=== PATIENT | female | born 1990 | race Caucasian/White ===

== ENCOUNTER → 2018-10-31 15:53 | Outpatient (CLI) | payer MEDICAID, SELFPAY ==
[2018-10-31 16:34] LABS: Basophils % 0.3 % (0.1-2.0); Eosinophils # 0.1 K/mm3 (0.0-0.4); Eosinophils % 1.4 % (0.1-12.0); Hematocrit 39.3 % (37.0-47.0); Hemoglobin 12.5 g/dL (12.2-16.2); Lymphocytes # 2.5 K/mm3 (0.7-4.5); Mean Corpuscular HGB Conc 31.7 g/dL (31.8-35.4); Mean Corpuscular Hemoglobin 28.2 pg (27.0-31.2); Mean Corpuscular Volume 88.7 fl (81-99); Mean Platelet Volume 7.2 fl (7.4-10.4); Monocytes # 0.3 K/mm3 (0.1-1.0); Monocytes % 4.4 % (1.7-9.3); Neutrophils # 4.3 K/mm3 (1.8-7.8); Neutrophils % 59.8 % (37.0-80.0); Platelet Count 254 K/mm3 (142-424); Red Blood Count 4.43 M/mm3 (4.20-5.40); Red Cell Distribution Width 13.8 % (11.5-17.5); White Blood Count 7.2 K/mm3 (4.8-10.8)
[2018-10-31 18:55] LABS: Thyroid Stimulating Hormone 1.11 uIU/ml (0.358-3.740)
[2018-11-03 17:08] LABS: HIV Screen 4th Generation wRfx Non Reactive (Non Reactive); Rapid Plasma Reagin Ab Titer Non Reactive (NonRea<1:1)
[2018-11-03 17:16] LABS: Hepatitis B Surface Antigen Negative (Negative); Rubella Antibodies, IgG 1.29 index (Immune >0.99)
== END ==
PROVIDERS: Visit Provider Obstetrics & Gynecology
DX: Z34.90 Encounter for supervision of normal pregnancy, unspecified, unspecified trimester (principal)
CPT/HCPCS: 36415; 84443; 85025; 86592; 86703; 86762; 86850; 87340; G0432

== ENCOUNTER → 2018-11-27 10:27 | Outpatient (CLI) | payer MEDICAID, SELFPAY ==
[2018-11-27 10:51] LABS: Basophils % 0.1 % (0.1-2.0); Hematocrit 37.3 % (37.0-47.0); Hemoglobin 12.3 g/dL (12.2-16.2); Lymphocytes # 1.9 K/mm3 (0.7-4.5); Lymphocytes % 19.6 % (10-50); Mean Corpuscular HGB Conc 33.1 g/dL (31.8-35.4); Mean Corpuscular Hemoglobin 29.6 pg (27.0-31.2); Mean Corpuscular Volume 89.6 fl (81-99); Monocytes # 0.4 K/mm3 (0.1-1.0); Monocytes % 3.9 % (1.7-9.3); Neutrophils # 7.3 K/mm3 (1.8-7.8); Neutrophils % 76.3 % (37.0-80.0); Platelet Count 249 K/mm3 (142-424); Red Blood Count 4.16 M/mm3 (4.20-5.40); Red Cell Distribution Width 13.9 % (11.5-17.5); White Blood Count 9.6 K/mm3 (4.8-10.8)
== END ==
PROVIDERS: Visit Provider Obstetrics & Gynecology
DX: Z48.89 Encounter for other specified surgical aftercare (principal); R50.9 Fever, unspecified
CPT/HCPCS: 36415; 85025; 87070; 87077; 87205

== ENCOUNTER → 2019-08-30 14:20 | Outpatient (CLI) | payer OTHER, SELFPAY ==
--- NOTE | 2019-08-30 14:21 | US_ITS ---
PROCEDURE: US OB /MATERNAL DETAIL CLINICAL INDICATION: COMPARISON: OBTV US OB transvaginal from 11/25/2018 FINDINGS: Single viable intrauterine gestation. Cephalic position. Placenta: Anteriorplacenta grade 1. There is average amount fluid. The cervix appears satisfactory. Closed and measuring 4 cm in length. Complete survey performed and was unremarkable on the submitted images as in PACS. No discrete anomalies identified on survey imaging by technologist. Active fetus. Three-vessel cord with satisfactory umbilical cord insertion. 4- chamber heart noted. Survey of brain & ventricles Unremarkable. Face and neck survey unremarkable. Diaphragm and chest views unremarkable. Abdomen: Both kidneys noted and unremarkable. Stomach noted and satisfactory. Spine: Survey of the spine satisfactory with no anomalies identified nor imaged. Both arms and legs noted. Amniotic Fluid: Adequate. Maternal adnexa: No significant findings. Measurements: Average ultrasound age 25 weeks 4 days. Gestational Age 26 weeks 0 days Estimated due date by ultrasound age 0212/09/2019. Estimated weight 769.6 ggrams. BPD = 26 weeks 4 days OFD = 25 weeks 3 days HC = 25 weeks 3 days AC = 25 weeks 0 days FL = 25 weeks 1 day Growth Percentile= 11 percent% Heart Rate = 126 bpm Cerebellum = 26 weeks 1 day Humerus = 26 weeks 0 days HC/AC is 1.14 CI is 0.81 FL/BPD is 0.69 FL/AC is 0.22 IMPRESSION: There is a single live fetus which is in cephalic presentation with an average ultrasound age of 25 weeks 4 days. All parameters correlate with no obvious anomalies. Please see above for detail Dictated by: Sherman Kovacs MD 08/30/2019 17:37 Electronically signed by Sherman Kovacs MD in [place] 08/30/2019 17:37
== END ==
PROVIDERS: PCP Internal Medicine Adolescent Medicine; Visit Provider Obstetrics & Gynecology
DX: Z34.90 Encounter for supervision of normal pregnancy, unspecified, unspecified trimester (principal)
CPT/HCPCS: 76811

== ENCOUNTER → 2019-09-20 16:44 | Outpatient (CLI) | payer OTHER, SELFPAY ==
[2019-09-20 17:23] LABS: Basophils % 0.2 % (0.1-2.0); Eosinophils # 0.2 K/mm3 (0.0-0.4); Eosinophils % 1.8 % (0.1-12.0); Hematocrit 38.3 % (37.0-47.0); Hemoglobin 12.6 g/dL (12.2-16.2); Lymphocytes # 2.5 K/mm3 (0.7-4.5); Lymphocytes % 22.1 % (10-50); Mean Corpuscular HGB Conc 33.1 g/dL (31.8-35.4); Mean Corpuscular Hemoglobin 30.3 pg (27.0-31.2); Mean Corpuscular Volume 91.7 fl (81-99); Mean Platelet Volume 8.4 fl (7.4-10.4); Monocytes # 0.5 K/mm3 (0.1-1.0); Monocytes % 4.1 % (1.7-9.3); Neutrophils % 71.8 % (37.0-80.0); Platelet Count 294 K/mm3 (142-424); Red Blood Count 4.17 M/mm3 (4.20-5.40); Red Cell Distribution Width 12.7 % (11.5-17.5); White Blood Count 11.2 K/mm3 (4.8-10.8)
[2019-09-20 18:57] LABS: Thyroid Stimulating Hormone 1.49 uIU/ml (0.358-3.740)
[2019-09-20 19:16] LABS: Amphetamine/Metha Screen,Urine Negative ng/mL (<1000); Barbiturates Screen,Urine Negative ng/mL (<200); Benzodiazepines Screen,Urine Negative ng/mL (<200); Cannabinoid Screen,Urine Negative ng/mL (<50); Cocaine Screen,Urine Negative ng/mL (<300); Methadone Screen,Urine Negative ng/mL (<300); Opiate Screen,Urine Negative ng/mL (<300); Phencyclidine Screen,Urine Negative ng/mL (<25)
[2019-09-22 08:27] LABS: HIV Screen 4th Generation wRfx Non Reactive (Non Reactive); Rapid Plasma Reagin Ab Titer Non Reactive (NonRea<1:1)
[2019-09-22 17:53] LABS: Hepatitis B Surface Antigen Negative (Negative); Hepatitis C Antibody >11.0 s/co ratio (0.0-0.9)
== END ==
PROVIDERS: Visit Provider Obstetrics & Gynecology
DX: Z34.90 Encounter for supervision of normal pregnancy, unspecified, unspecified trimester (principal)
CPT/HCPCS: 36415; 80305; 84443; 85025; 86592; 86703; 86762; 86850; 87340; 87380; G0432

== ENCOUNTER → 2019-10-15 17:14 | Outpatient (CLI) | payer OTHER, SELFPAY | PROVIDERS: Visit Provider Obstetrics & Gynecology | DX: Z34.90 Encounter for supervision of normal pregnancy, unspecified, unspecified trimester (principal) | CPT/HCPCS: 36415; J2790 ==

== ENCOUNTER 2019-10-19 11:50 | Outpatient (CLI) | payer OTHER, SELFPAY ==
[2019-10-19 12:05] VITALS: BP 117/61; PULSE 89; RESP 18; O2SAT 97
== END 2019-10-19 12:05 | disposition home or self-care (01) ==
LOC: INF 12:00
PROVIDERS: PCP Internal Medicine Adolescent Medicine; Visit Provider Obstetrics & Gynecology
DX: O26.893 Other specified pregnancy related conditions, third trimester (principal)
CPT/HCPCS: 96372; J2790

== ENCOUNTER → 2019-10-26 13:56 | Outpatient (CLI) | payer OTHER, SELFPAY ==
--- NOTE | 2019-10-26 13:57 | US_ITS ---
PROCEDURE: US OB FOLLOW UP CLINICAL INDICATION: US OB Growth SANDER- SGA Small for gestational age COMPARISON: US OB /MATERNAL DETAIL from 08/30/2019 FINDINGS: There is a single live fetus present which is in cephalic presentation. Average ultrasound age is 33 weeks 0 days with estimated weight 2067 g which is 15th percentile. Following parameters obtained. BPD 32 weeks 3 days, OFD 35 weeks 2 days, HC 33 weeks 4 days, AC 33 weeks 1 day, FL 32 weeks 4 days. Amniotic fluid volume is 12 cm which is within normal limits. The placenta is anterior and grade 1 IMPRESSION: There is a single live fetus present which is in cephalic presentation. Average ultrasound age is 33 weeks 0 days with estimated weight 2067 g which is 15th percentile SANDER is normal at 12 cm Dictated by: Sherman Kovacs MD 10/27/2019 09:30 Electronically signed by Sherman Kovacs MD in [place] 10/27/2019 09:30
== END ==
PROVIDERS: PCP Internal Medicine Adolescent Medicine; Visit Provider Obstetrics & Gynecology
DX: O36.5990 Maternal care for other known or suspected poor fetal growth, unspecified trimester, not applicable or unspecified (principal)
CPT/HCPCS: 76816

== ENCOUNTER → 2019-11-09 12:52 | Outpatient (CLI) | payer OTHER, SELFPAY ==
--- NOTE | 2019-11-09 12:57 | US_ITS ---
PROCEDURE: US OB FOLLOW UP CLINICAL INDICATION: US OB Growth and SANDER- IUGR COMPARISON: US OB FOLLOW UP from 10/26/2019 FINDINGS: Single viable intrauterine gestation. Cephalic position. Placenta: placenta grade anterior 2-3. SANDER is 12.1 The cervix appears satisfactory. Closed and measuring 2.7 centimeters in length. Complete survey performed and was unremarkable on the submitted images as in PACS. No discrete anomalies identified on survey imaging by technologist. Active fetus. Three-vessel cord with satisfactory umbilical cord insertion. 4- chamber heart noted. Survey of brain & ventricles Unremarkable. Face and neck survey unremarkable. On image [id number] a nonspecific 1 centimeter cystic focus is seen in the periorbital region. Diaphragm and chest views unremarkable. Abdomen: Both kidneys noted and unremarkable. Stomach noted and satisfactory. Spine: Survey of the spine satisfactory with no anomalies identified nor imaged. Both arms and legs noted. Amniotic Fluid: Adequate. Maternal adnexa: No significant findings. Measurements: Average ultrasound age 33weeks 6days. Gestational Age 33weeks 6days Estimated due date by ultrasound age 0312/22/2019. Estimated weight 2,255g BPD = 34weeks 1day OFD = 34 weeks 4 days HC = 34weeks AC = 34weeks 1day FL = 33weeks Growth Percentile= 12Percent% Heart Rate = 123bpm HC/AC is 1.02 CI is 0.78 FL/BPD is 0.75 FL/AC is 0.21 IMPRESSION: Living intrauterine gestation at 33 weeks 6 days. Dictated by: Zeke Chapman 11/09/2019 14:44 Electronically signed by Zeke Chapman in [place] 11/09/2019 14:44
== END ==
PROVIDERS: PCP Internal Medicine Adolescent Medicine; Visit Provider Obstetrics & Gynecology
DX: O36.5990 Maternal care for other known or suspected poor fetal growth, unspecified trimester, not applicable or unspecified (principal)
CPT/HCPCS: 76816

== ENCOUNTER → 2019-11-13 16:43 | Outpatient (CLI) | payer OTHER, SELFPAY | PROVIDERS: Visit Provider Obstetrics & Gynecology | DX: Z34.90 Encounter for supervision of normal pregnancy, unspecified, unspecified trimester (principal) | CPT/HCPCS: 86403 ==

== ENCOUNTER 2019-11-26 07:30 | Inpatient (IN) ==
[2019-11-30 08:35] LABS: Basophils % 0.3 % (0.1-2.0); Eosinophils # 0.6 K/mm3 (0.0-0.4); Eosinophils % 6.1 % (0.1-12.0); Hematocrit 36.3 % (37.0-47.0); Lymphocytes % 30.7 % (10-50); Mean Corpuscular Volume 90.3 fl (81-99); Mean Platelet Volume 8.4 fl (7.4-10.4); Monocytes # 0.5 K/mm3 (0.1-1.0); Monocytes % 4.8 % (1.7-9.3); Neutrophils # 5.7 K/mm3 (1.8-7.8); Neutrophils % 58.1 % (37.0-80.0); Platelet Count 261 K/mm3 (142-424); Red Blood Count 4.02 M/mm3 (4.20-5.40); Red Cell Distribution Width 13.5 % (11.5-17.5); White Blood Count 9.8 K/mm3 (4.8-10.8)
[2019-11-30 08:53] LABS: Microscopic, Urine URINE MICROSCOPIC (MICROSCOPIC)
[2019-11-30 09:07] LABS: Appearance,Urine CLOUDY (Clear); Bilirubin,Urine Negative (Negative); Blood, Urine Negative (Negative); Color,Urine YELLOW (Yellow); Glucose,Urine (UA) Negative (Negative); Ketones,Urine Negative (Negative); Leukocyte Esterase,Urine TRACE (Negative); Protein,Urine Negative (Negative)
[2019-11-30 09:57] LABS: Bacteria,Urine 4+ /lpf
[2019-11-30 09:59] LABS: Amphetamine/Metha Screen,Urine Negative ng/mL (<1000); Barbiturates Screen,Urine Negative ng/mL (<200); Benzodiazepines Screen,Urine Negative ng/mL (<200); Cannabinoid Screen,Urine Negative ng/mL (<50); Cocaine Screen,Urine Negative ng/mL (<300); Methadone Screen,Urine Negative ng/mL (<300); Opiate Screen,Urine Negative ng/mL (<300); Phencyclidine Screen,Urine Negative ng/mL (<25)
--- NOTE | 2019-11-30 11:16 | Operative Note ---
Pre-Op/Post-Op Diagnoses Operation Date: 11/30/19 09:45 <No data on this case meets the specified criteria> 1. 38 5/7 wks 2. IUGR 3. Previous C Section 4. Hepatitis C positive 5. Tobacco abuse Procedure: Procedures Operation Date: 11/30/19 09:45 <No data on this case meets the specified criteria> Repeat Low Transverse C Section Disposition: floor Anesthesia type: Spinal Complications: none Narrative: The patient was taken to the OR and spinal was administered without difficulty. She was prepped and draped in normal sterile fashion. A pfannenstiel skin incision was made with the scalpel and carried down to the fascia. The fascia was incised in the midline and sharply dissected off the rectus muscles. The muscles were in the midline and the peritoneum was entered sharply and extended bluntly. The Dave-O self retaining retractor was placed in the abdomen and a bladder flap was created. The uterus was incised in the lower uterine segment in a transverse fashion and extended bluntly. Amniotomy was performed and clear fluid noted. The infant was delivered in controlled fashion, without complication or shoulder dystocia. The infant was vigorous at and handed to awaiting table games manager for evaluation after cord clamped and cut. Cord blood was collected and a cord segment was preserved. The placenta was manually extracted and noted to be intact. The uterus was repaired with 0- vicryl in a running/locked fashion. The peritoneum was closed with 2-0 vicryl in a running fashion. The fascia was closed with #1 vicryl in a running fashion. The subcutaneous fat was closed with 2-0 vicryl in an interrupted fashion. The skin was closed with leonor. The patient tolerated the procedure well. Sponge, lap, needle and instrument counts were correct x 2. EBL: 600cc She was taken to PACU awake and in stable condition. Additional notation: The patient had previously signed consent for tubal sterilization to be done at the time of her c section, but disclosed to the physician and OR staff on the day of her procedure that she did not want to have the sterilization procedure performed.
--- NOTE | 2019-11-30 11:24 | Pharmacy Consult Notes ---
[facility] Pharmacy VTE Monitoring - Patient Demographics Admission date: 11/30/19 Report Date: 11/30/19 Time: 11:24 Allergies/Adverse Reactions: Patient Allergies Penicillins Allergy (Mild, Verified 11/26/19 15:16) hydrocodone [From LORTAB] Allergy (Unknown, Verified 11/26/19 15:16) latex [LATEX] Allergy (Unknown, Verified 11/26/19 15:16) Height: 1.55 m Weight: 62.142 kg Patient Problems: Current Active Problems Tobacco smoking complicating (Acute) IUGR (intrauterine growth restriction) (Acute) Previous section (Acute) with plans to adopt out baby (Acute) Hepatitis C (Acute) Rh negative status during in first trimester (Acute) - VTE Risk Labs: VTE Related Lab Results Hgb 12.0 g/dL (12.2-16.2) L 11/30/19 08:20 Hct 36.3 % (37.0-47.0) L 11/30/19 08:20 Plt Count 261 K/mm3 (142-424) 11/30/19 08:20 Clinical Trial Participant: No - Prophylaxis VTE Prophylaxis Ordered?: Yes Types of VTE Prophylaxis: IPCS Thigh High
--- NOTE | 2019-11-30 11:26 | Progress Note ---
[facility] Anesthesia Checklist - Patient Identification Patient Identification: Arm Band, Verbal (Name & ) - Structural Data Admitted From: Home Planned Operative Procedure/s: Repeat Consent for Planned Operative Procedure(s) Verified: Yes Verified Documents: Surgical Consent, History and Physical - NPO Status Verified Time NPO: 00:00 - Chart Verification Results Verified: CBC - Additional verifications Patient : Yes Anesthesia Reactions: No Hx Blood Transfusions: No Blood Transfusion Reaction: No - Airway Assessment C-Spine Mobility Assessed: Yes TMJ Mobility Assessed: Yes Dentition: Poor Dentition - Neurological Assessment Level of Consciousness: Awake (anxious), Alert, Follows Commands Hx Seizures: No Numbness or tingling in extremities: No - Anesthesia Plan Anesthesia Risk discussed: Yes Anesthesia Plan: Verified ASA Class: III Anesthesia Type: Spinal [facility] History I have reviewed the patient's past medical history: Yes Medical History: Reports:: Hepatitis (Hep C) Denies:: Cancer, Diabetes Mellitus Type 1, Diabetes Mellitus Type 2, Internal Pacemaker, Lung Disease, MRSA, Seizures *Have you ever received a pneumonia vaccine?: No *Have you received a flu vaccine this season?: Yes Other Medical History: Reports: Other. Denies: Blood Transfusion Reaction Anesthesia experience/problems:: none Other Surgeries: Yes: . No: Pacemaker Amputation: No Fractures: No - *Social History Smoking Status: Current every day smoker Tobacco Type: cigarettes # Packs/Day (cigarettes): 1 Alcohol Intake: never Alcohol Intake Frequency:: other Substance Use Type: heroin (hx of heroin abuse) *Occupational Status:: unemployed Housing: house Household Members: family *Travel in the last 8 weeks: None Family Hx:: Cancer Para: 2
--- NOTE | 2019-11-30 11:27 | Progress Note ---
[facility] Anesthesia Record Part I Intake, IV Amount: 700 Estimated blood loss (mL): 600 Urine output (mL): 400 Blood Products used (#): none Blood Pressure: 122/70 SaO2: 96 Pulse Rate: 62 Respiratory Rate: 15 Temperature: 97.0 F Patient is:: Awake, Stable Stable to PACU at:: 11:17
--- NOTE | 2019-11-30 16:33 | Progress Note ---
[facility] Anesthesia Record Part II Discharge Time: 12:17 Destination: Obstetric PACU nurse assessment reviewed?: Yes Patient Condition:: Good Anesthesia Complications:: None Swallowing reflex intact?: Yes Cyanosis?: No Blood Pressure: 115/67 Pulse Rate: 55 Temperature: 97.5 F Mental Status: Alert & Oriented Pain level:: 5 Nausea and/or vomitting:: None Intake, IV Amount: 0
[2019-12-01 05:52] LABS: Hematocrit 26.2 % (37.0-47.0); Hemoglobin 8.9 g/dL (12.2-16.2)
--- NOTE | 2019-12-01 11:03 | Progress Note ---
Internal Medicine - PN: Subj *Date: 12/01/19 *Time: 11:02 Interval history: She continues to do well this morning. She is eating and drinking and ambulating. She is bottlefeeding. Her lochia is normal. Her incision is clean and dry. Exam Vital signs and Labs for Last 24 Hours: Temp Pulse Resp BP Pulse Ox 97.7 F 72 20 103/51 L 99 12/01/19 08:30 12/01/19 08:30 12/01/19 08:30 12/01/19 08:30 12/01/19 08:30 Laboratory Results - last 24 hr 11/30/19 07:50: Urine Color Yellow, Urine Appearance Cloudy, Urine pH 7.0, Ur Specific [place] 1.020, Urine Protein Negative, Urine Glucose (UA) Negative, Urine Ketones Negative, Urine Blood Negative, Urine Nitrate Positive, Urine Bilirubin Negative, Urine Urobilinogen 1.0, Ur Leukocyte Esterase Trace, Urine RBC None, Urine WBC 5-10, Ur Squamous Epith Cells 10-20, Urine Bacteria 4+ 11/30/19 08:20: Blood Type A Negative 11/30/19 08:20: Antibody Identification Anti-D 11/30/19 10:28: Urine Color Yellow, Urine Appearance Clear, Urine pH 7.0, Ur Specific [place] <= 1.005, Urine Protein Negative, Urine Glucose (UA) Negative, Urine Ketones Negative, Urine Blood Negative, Urine Nitrate Positive, Urine Bilirubin Negative, Urine Urobilinogen 1.0, Ur Leukocyte Esterase Trace, Urine RBC None, Urine WBC Occasional, Ur Squamous Epith Cells Occasional, Urine Bacteria 2+ A 12/01/19 05:35: Hgb 8.9 L D, Hct 26.2 L I & O for Last 24 hours: Intake & Output 11/28/19 11/29/19 11/30/19 12/01/19 11:59 11:59 11:59 11:59 Intake Total 700 / 700 0 / 0 Balance 700 / 700 0 / 0 Weight 137 lb Microbiology Reports for the Last 24 Hours: Microbiology 11/30/19 10:28 Urine,Catheterized Urine Culture - Preliminary Gram Negative Rods 11/30/19 07:50 Urine,Clean Catch Urine Culture - Preliminary Gram Negative Rods - Constitutional no acute distress Assessment and Plan (1) IUGR (intrauterine growth restriction) Current visit: Yes Status: Acute Category: Medical (2) complicated by subutex maintenance, antepartum Current visit: Yes Status: Acute Category: Medical Code(s): O99.320 - Drug use complicating , unspecified trimester; F11.20 - Opioid dependence, uncomplicated (3) Previous section Current visit: Yes Status: Acute Category: Surgical Code(s): Z98.891 - History of uterine scar from previous surgery (4) Rh negative status during in first trimester Current visit: Yes Status: Acute Category: Medical Code(s): O26.891 - Other specified related conditions, first trimester; Z67.91 - Unspecified blood type, Rh negative (5) Tobacco smoking complicating Current visit: Yes Status: Acute Category: Medical Code(s): O99.330 - Smoking (tobacco) complicating , unspecified trimester - Assessment and plan all Dx Assessment and Plan for all problems:: She is doing well this morning. She will be discharged home in 48 hours.
--- NOTE | 2019-12-02 11:11 | Progress Note ---
Internal Medicine - PN: Subj *Date: 12/02/19 *Time: 11:10 Interval history: She continues to do well this morning. She is eating and drinking and ambulating. Her pain is well controlled. Exam Vital signs and Labs for Last 24 Hours: Temp Pulse Resp BP Pulse Ox 98.1 F 73 20 117/56 L 99 12/02/19 09:10 12/02/19 09:10 12/02/19 09:10 12/02/19 09:10 12/02/19 09:10 I & O for Last 24 hours: Intake & Output 11/29/19 11/30/19 12/01/19 12/02/19 11:59 11:59 11:59 11:59 Intake Total 700 / 700 0 / 0 Balance 700 / 700 0 / 0 Weight 137 lb Microbiology Reports for the Last 24 Hours: Microbiology 11/30/19 10:28 Urine,Catheterized Urine Culture - Final Escherichia coli 11/30/19 07:50 Urine,Clean Catch Urine Culture - Final Escherichia coli - Constitutional no acute distress Assessment and Plan (1) IUGR (intrauterine growth restriction) Current visit: Yes Status: Acute Category: Medical (2) complicated by subutex maintenance, antepartum Current visit: Yes Status: Acute Category: Medical Code(s): O99.320 - Drug use complicating , unspecified trimester; F11.20 - Opioid dependence, uncomplicated (3) Previous section Current visit: Yes Status: Acute Category: Surgical Code(s): Z98.891 - History of uterine scar from previous surgery (4) Rh negative status during in first trimester Current visit: Yes Status: Acute Category: Medical Code(s): O26.891 - Other specified related conditions, first trimester; Z67.91 - Unspecified blood type, Rh negative (5) Tobacco smoking complicating Current visit: Yes Status: Acute Category: Medical Code(s): O99.330 - S moking (tobacco) complicating , unspecified trimester - Assessment and plan all Dx Assessment and Plan for all problems:: She is doing very well. She will likely be discharged tomorrow. Dr. Leyva will see her in the morning.
[2019-12-02 13:38] LABS: Microscopic, Urine URINE MICROSCOPIC (MICROSCOPIC)
[2019-12-02 17:09] VITALS: BP 117/62
--- NOTE | 2019-12-02 17:53 | Discharge Summary ---
General - General Admission date:: 11/30/19 Discharge date: 12/02/19 HPI HPI: She is a 29-year-old 5 para 3 aborta 2 who was 39 weeks gestational age. She is had 2 previous sections and as result of this was offered repeat lower segment transverse section at term. Hospital Course Hospital Course: On November 30, 2019 she underwent a repeat lower segment transverse section and delivered a liveborn female child at 10:43 AM. The baby weighed 6 pounds 3 ounces and was 18-1/2 inches long. She had Apgars of 8 at 1 minute and 8 at 5 minutes. She has done well and has remained afebrile throughout her hospitalization. She is eating and drinking and ambulating. We are sending her home a day early since her baby is going through withdrawal. The manolo paz has been on Subutex. Baby is being transferred to . She has A Rh- blood and her baby was Rh- so she did not receive RhoGam. She is rubella immune and was group A streptococcus negative. She is bottlefeeding. Her rough rib grader is Dr. Torres. She is discharged home to follow-up with Dr. Major in a few days time to have her leonor removed. She will continue with her vitamins and iron. She will be given a prescription for Percocet 5/325 number 20 tablets. She will take ibuprofen as well. She was given the usual instructions with respect to limiting her activity, driving and sexual activity. Her condition on discharge is stable and improved. Rhogam Administration: Not Indicated Objective Vital signs: Temp Pulse Resp BP Pulse Ox 98.3 F 90 20 117/62 98 12/02/19 16:00 12/02/19 16:00 12/02/19 16:00 12/02/19 16:00 12/02/19 16:00 no acute distress Results Labs on day of discharge: Labs from last 24 hours 12/02/19 13:35 Urine Color Urine Appearance Urine pH Ur Specific [place] Urine Protein Urine Glucose (UA) Urine Ketones Urine Blood Urine Nitrate Urine Bilirubin Urine Urobilinogen Ur Leukocyte Esterase DS: Diagnosis - Discharge Diagnosis (1) IUGR (intrauterine growth restriction) Status: Acute (2) complicated by subutex maintenance, antepartum Status: Acute (3) Previous section Status: Acute (4) Rh negative status during in first trimester Status: Acute (5) Tobacco smoking complicating Status: Acute Discharge Plan - Patient Discharge Instructions ACTIVITY: No heavy lifting DIET: continue same diet Additional Instructions: CALL DR. MAJOR TO SCHEDULE F/U APPOINTMENT. Patient Instructions: DI for Hemorrhage, Depression, DI for Depression, [facility] Post Discharge Instructions - Follow up Plan Disposition: Home, Self-Alf Medications: Home Medications Medication Instructions Recorded Confirmed Type buprenorphine HCl 8 mg sublingual 16 mg SUBLINGUAL DAILY 10/19/19 12/01/19 History tablet Docosahexanoic Acid [ DHA] 200 mg PO DAILY 11/30/19 11/30/19 History Oxycodone HCl/Acetaminophen 1 tab PO Q4H PRN #20 tab 12/02/19 Rx [Percocet 5/325mg tablet] Prescriptions/Medication Reconciliation: New Oxycodone HCl/Acetaminophen [Percocet 5/325mg tablet] 1 tab PO Q4H PRN #20 tab PRN Reason: Severe Pain Continued buprenorphine HCl 8 mg sublingual tablet 16 mg SUBLINGUAL DAILY Docosahexanoic Acid [ DHA] 200 mg PO DAILY - Problem Reconciliation Problems Reviewed?: Yes
[2019-12-02 18:53] LABS: Color,Urine Yellow (Yellow)
[2019-12-02 18:55] LABS: Appearance,Urine Cloudy (Clear)
[2019-12-02 18:56] LABS: Glucose,Urine (UA) Negative (Negative); Ketones,Urine Negative (Negative); Protein,Urine Negative (Negative); Specific Gravity, Urine >= 1.030 (1.005-1.030)
[2019-12-02 18:57] LABS: Bilirubin,Urine Negative (Negative); Blood, Urine 2+ (Negative); Leukocyte Esterase,Urine Negative (Negative)
[2019-12-02 18:59] LABS: Squamous Epithelial Cell,Urine 20-50 #/hpf (0-5)
[2019-12-02 19:00] LABS: Amorphous Sediment,Urine 4+ /lpf; Calcium Oxalate Crystals,Urine 1+ /lpf
== END 2019-12-02 18:28 | disposition home or self-care (01) | DRG 787 ==
LOC: OB 11-30 07:42
PROVIDERS: ADMIT Obstetrics & Gynecology; ATTEND Obstetrics & Gynecology
CPT/HCPCS: 36415; 59025; 80305; 80348; 81001; 85014; 85018; 85025; 86850; 86870; 87086; 87088; 87186; J0571; J2405; S0077

== ENCOUNTER → 2019-12-17 11:55 | Outpatient (CLI) | payer OTHER, SELFPAY | PROVIDERS: Visit Provider Obstetrics & Gynecology | DX: N39.0 Urinary tract infection, site not specified (principal) | CPT/HCPCS: 36415; 87086; 87088; 87186 ==

== ENCOUNTER 2021-01-04 18:56 | Emergency (ER) | payer OTHER, SELFPAY ==
[2021-01-04 18:57] VITALS: BP 131/80; PULSE 102; RESP 20; TEMP 37.1; O2SAT 100; BMI 25.9
--- NOTE | 2021-01-04 19:39 | HMH.EDUTC ---
[facility] [place] Clinical Impression: Strep throat Disposition: Home, Self-Care Condition on Discharge: Good Instructions: DI for Strep Throat, Strep Throat, Strep Throat (Alternative Therapy) Additional Instructions: *Monitor Temp, Over the counter Motrin or Tylenol as directed/as needed Tylenol every 4 hours and Motrin every 6 hours (as long as your family doctor has told you that you can take it) for fever or pain. and straight to ER if unable to lower temp less than 101.0 after medication given *Warm salt water gargles may help to soothe the throat *Throat Lozenges *Warm fluids like tea with honey may help to soothe the throat *Sleep elevated *Humidifier/Vaporizer *If you did not take Penicillin shot or was unable to, start taking antibiotic immediately and make sure that you take it for the FULL length of time although you should start to feel better in 24-48 hours *change toothbrush and toothpaste 24-48 hours after starting to take antibiotics so you do not reinfect yourself Monitor Temp. Tylenol and/or Ibuprofen as needed. ER if fever is no less than 101 despite alternating Tylenol and Ibuprofen * Encourage fluids, water, Gatorade, powerade, pedialyte if infant/toddler/or child *Cold fluids, popsicles and ice cream may feel good on his throat Follow up IMMEDIATELY for new or worsening symptoms or no Noticeable improvement over the next 48-72 hours. 911 for difficulty breathing or swallowing Prescriptions: Azithromycin [Z-Jose Angel 250mg Tab] 250 mg PO DIRECTED #6 tab Transmission Status: Pending to [facility]/pharmacy #[id number] Referrals: Dexter Garduno MD [Primary Care Provider] - As needed Time of Disposition: 19:43 Medical Decision Making - Calin Inquiry Pt receiving controlled substance: No Calin was queried for this patient: No Vital Signs: 01/04/21 18:57 Temperature 98.8 F Temperature Source Oral Pulse Rate [Right Brachial] 102 H Respiratory Rate 20 Blood Pressure [Right Arm] 131/80 Blood Pressure Mean [Right Arm] 97 Blood Pressure Source [Right Arm] Automatic Cuff Blood Pressure Position [Right Arm] Sitting 02 Sat by Pulse Oximetry 100 Oxygen Delivery Method Room Air - Lab Data Lab results reviewed: Yes: I reviewed the patient's lab results. [facility] [place]PI - General Stated complaint: possible strep Time Seen by Provider: 01/04/21 19:39 Mode of Arrival: Ambulatory Source of Information: Patient Limitations: No Limitations Description of Symptoms (Recalled from Triage Doc. by RN): C/O SORE THROAT, EXPOSURE TO STREP HEENT Symptoms (Recalled from RN notes): Yes Resp Symptoms (Recalled from RN notes): No Skin Symptoms (Recalled from RN notes): No MS Symptoms (Recalled from RN notes): No Functional Status (Recalled from RN notes): WNL - History of Present Illness Provider Complaint: Patient states that her throat has been sore for several days and her daughter tested positive for strep throat earlier today and she thinks she may have it too - Related Data Home Medications Medication Instructions Recorded Confirmed buprenorphine HCl 8 mg sublingual 16 mg SUBLINGUAL DAILY 10/19/19 12/17/19 tablet Previous Rx's Medication Instructions Recorded ciprofloxacin HCl 500 mg tablet 500 mg PO BID 5 Days #10 tab 12/17/19 norethindrone acetate 1.5 1 tab PO DAILY #21 tab 02/12/20 mg-ethinyl estradiol 30 mcg tablet Azithromycin [Z-Jose Angel 250mg Tab] 250 mg PO DIRECTED #6 tab 01/04/21 Allergies Allergy/AdvReac Type Severity Reaction Status Date / Time Penicillins Allergy Mild Verified 12/17/19 10:48 hydrocodone [From LORTAB] Allergy Unknown Verified 12/17/19 10:48 latex [LATEX] Allergy Unknown Verified 12/17/19 10:48 - Worker's Comp Is this a Worker's Comp case?: No [facility] History - Hepatitis A Screen Drug use history?: No High risk sexual behaviors?: No History of sexually transmitted infection?: No Currently employed?: No Childcare worker?: No Do you have indoor plumbing
[2021-01-04 19:55] VITALS: BP 131/80; PULSE 102; RESP 20; TEMP 37.1; O2SAT 100
[2021-01-04 21:42] LABS: UTC Strep Screen (Rapid) Positive (Negative)
== END 2021-01-04 20:00 | disposition home or self-care (01) ==
PROVIDERS: Emergency Provider Nurse Practitioner; PCP Internal Medicine Adolescent Medicine
DX: J02.0 Streptococcal pharyngitis (principal); B19.20 Unspecified viral hepatitis C without hepatic coma; F17.210 Nicotine dependence, cigarettes, uncomplicated; Z88.0 Allergy status to penicillin; Z88.5 Allergy status to narcotic agent; Z91.040 Latex allergy status; Z79.899 Other long term (current) drug therapy
CPT/HCPCS: 87880; 99202; G0463

== ENCOUNTER → 2021-07-10 17:28 | Outpatient (CLI) | payer OTHER, SELFPAY | PROVIDERS: PCP Internal Medicine Adolescent Medicine; Visit Provider Nurse Practitioner | DX: Z20.822 Contact with and (suspected) exposure to COVID-19 (principal) | CPT/HCPCS: C9803; U0003; U0005 ==

== ENCOUNTER 2021-11-24 21:15 | Emergency (ER) | payer OTHER, SELFPAY ==
[2021-11-24 21:17] VITALS: BP 134/94; PULSE 63; RESP 18; TEMP 36.8; O2SAT 98; BMI 28.3
--- NOTE | 2021-11-24 21:42 | HMH.EDWNDL ---
ED Disposition Clinical Impression: Laceration of hand Qualifiers: Encounter type: initial encounter Foreign body presence: without foreign body Laterality: right Qualified Code(s): S61.411A - Laceration without foreign body of right hand, initial encounter Disposition: Home, Self-Care Condition on Discharge: Good Instructions: DI for Laceration Repair Additional Instructions: recheck if any problems Referrals: Dexter Garduno MD [Primary Care Provider] - - Critical Care Critical Care Time: No Attestation: On 11/24/21, the high probability of a clinically significant, sudden or life threatening deterioration of the following system(s) required my full and direct attention, intervention and personal management. The time I documented below is in addition to time spent performing reported procedures but includes the following listed in this critical care notation. Medical Decision Making - Medical Records Medical records reviewed: Yes: I reviewed the patient's medical records. - Calin Inquiry Pt receiving controlled substance: No Vital Signs: 11/24/21 21:17 Temperature 98.3 F Temperature Source Oral Pulse Rate [Right] 63 Respiratory Rate 18 Blood Pressure [Right Arm] 134/94 H Blood Pressure Mean [Right Arm] 107 02 Sat by Pulse Oximetry 98 Oxygen Delivery Method Room Air Medical Decision Narrative: declined sutures and will recheck if needed Wound/Laceration HPI - General Chief Complaint: Wound/Laceration Stated Complaint: AO02/08@1500 lac on r hand Time Seen by Provider: 11/24/21 21:42 Mode of Arrival: Wheelchair Source of Information: Patient, Medical Record Limitations: No Limitations Description of Symptoms (Recalled from ER Triage Doc. by RN): Pt cut her R hand with a kitchen knife while trying to open a package. Pt had a tetnus shot last yr. Pt is refusing to have stitches placed. - History of Present Illness HPI narrative: laceration rt hand rt thenar area tonight Onset (ago): hour(s) Extremity Location: Right: hand Place: home Patient tetanus UTD: Yes Context: sharp object use Associated symptoms: none - Related Data Home Medications Medication Instructions Recorded Confirmed buprenorphine HCl 8 mg sublingual 16 mg SUBLINGUAL DAILY 10/19/19 11/24/21 tablet norethindrone ac-eth estradioL 1 tab PO DAILY 11/24/21 11/24/21 [Norethin-Ee 1.5-0.03 mg(21) Tb] Allergies Allergy/AdvReac Type Severity Reaction Status Date / Time Penicillins Allergy Mild Verified 07/15/21 18:32 hydrocodone [From LORTAB] Allergy Unknown Verified 07/15/21 18:32 latex [LATEX] Allergy Unknown Verified 07/15/21 18:32 [facility] History - Hepatitis A Screen Drug use history?: Yes High risk sexual behaviors?: No History of sexually transmitted infection?: No Currently employed?: No Childcare worker?: No Do you have indoor plumbing?: Yes Do you have electricity?: Yes Attestation statement:: This patient has been screened for Hepatitis A risk factors. I have reviewed the patient's past medical history: Yes Medical History: Reports:: Hepatitis Denies:: Cancer, Diabetes Mellitus Type 1, Diabetes Mellitus Type 2, Internal Pacemaker, Lung Disease, MRSA, Seizures Other Medical History: Reports: Other. Denies: Blood Transfusion Reaction Comment: RT. CORNUAL ECTOPIC . VULVAR CONDYLOMATA ACUMINATA Other Surgeries: Yes: . No: Pacemaker Amputation: No Fractures: No Comment: VAGINAL CYSTS REMOVED CHILD. WISDOM TEETH REMOVAL---2007. EYE SURGERY---2011. DX. LSC, ADHESIOLYSIS, D&C, EXP. LAP., WEDGE RESECTION--RT. UTERINE CORNU, PARTIAL RT SALPINGX---03/10/13. P* C/S (FORCEPS DELIVERY), EXTENSIVE ADHESIOLYSIS---08/22/2017. D&C---11/26/2018 - Social History Smoking Status: Current every day smoker Tobacco Type: cigarettes # Packs/Day (cigarettes): 1 Alcohol Intake: never Alcohol Intake Frequency:: other Substance Use Type: heroin Occupational Status: unemployed [employer]
[2021-11-24 21:48] VITALS: BP 130/80; PULSE 80; RESP 18; TEMP 36.8; O2SAT 98
== END 2021-11-24 21:52 | disposition home or self-care (01) ==
PROVIDERS: Emergency Provider Emergency Medicine; PCP Internal Medicine Adolescent Medicine
DX: S61.411A Laceration without foreign body of right hand, initial encounter (principal); W26.0XXA Contact with knife, initial encounter; Y92.019 Unspecified place in single-family (private) house as the place of occurrence of the external cause; F17.210 Nicotine dependence, cigarettes, uncomplicated
CPT/HCPCS: 99281

== ENCOUNTER 2022-04-17 10:40 | Emergency (ER) | payer OTHER, SELFPAY ==
[2022-04-17 10:45] VITALS: BP 116/86; PULSE 100; RESP 16; TEMP 36.8; O2SAT 95; BMI 30.6
--- NOTE | 2022-04-17 10:59 | HMH.EDUTC ---
[facility] [place] Disposition Clinical Impression: Pharyngitis Qualifiers: Pharyngitis/tonsillitis etiology: unspecified etiology Qualified Code(s): J02.9 - Acute pharyngitis, unspecified Otitis media Qualifiers: Otitis media type: suppurative Chronicity: acute Laterality: bilateral Recurrence: non-recurrent Spontaneous tympanic membrane rupture: without spontaneous rupture Qualified Code(s): H66.003 - Acute suppurative otitis media without spontaneous rupture of ear drum, bilateral Disposition: Home, Self-Care Condition on Discharge: Good Instructions: Middle Ear Infection, DI for Pharyngitis/Tonsillopharyngitis -- Adult Additional Instructions: Drink plenty of fluids. Take tylenol or ibuprofen for pain or fever. Take the medications as directed. Follow up with your regular doctor. GO TO THE ER FOR ANY WORSENING SYMPTOMS Prescriptions: Brompheniramine/Pseudoephed/Dm [Bromfed Dm Cough Syrup] 5 ml PO Q6HP PRN #240 ml PRN Reason: Cough Transmission Status: Received by [id number] methylPREDNISolone [Medrol] 4 mg PO DIRECTED 6 Days #21 packet Transmission Status: Received by [id number] Azithromycin [Z-Jose Angel 250mg Tab*] 250 mg PO UD DOSE PK #6 tab Transmission Status: Received by [id number] Referrals: Dexter Garduno MD [Primary Care Provider] - Time of Disposition: 11:23 Medical Decision Making - Medical Records Medical records reviewed: No: I reviewed the patient's medical records. - Calin Inquiry Pt receiving controlled substance: No Vital Signs: 04/17/22 10:45 04/17/22 11:24 Temperature 98.2 F 98.2 F Temperature Source Oral Pulse Rate 100 H Pulse Rate [Left] 100 H Respiratory Rate 16 16 Blood Pressure 116/86 Blood Pressure [Right Arm] 116/86 Blood Pressure Mean [Right Arm] 96 02 Sat by Pulse Oximetry 95 - Lab Data Lab results reviewed: Yes: I reviewed the patient's lab results. [facility] [place] HPI - General Stated complaint: sore throat, ear pain Time Seen by Provider: 04/17/22 10:59 Description of Symptoms (Recalled from Triage Doc. by RN): patient comes in for sore throat and ear pain. patient also has an infected place on her finger where she had her nails done. patient has had symptoms for 3 days HEENT Symptoms (Recalled from RN notes): Yes Resp Symptoms (Recalled from RN notes): No Skin Symptoms (Recalled from RN notes): No MS Symptoms (Recalled from RN notes): No Functional Status (Recalled from RN notes): wnl - History of Present Illness Provider Complaint: She states that she has had a worsening sore throat, right ear pain and sinus congestion for the past 3 days. She has had 2 negative home covid test and yesterday she had a negative covid pcr test at [facility] - Related Data Home Medications Medication Instructions Recorded Confirmed buprenorphine HCl 8 mg sublingual 55 mg SUBLINGUAL DAILY 10/19/19 11/24/21 tablet norethindrone ac-eth estradioL 1 tab PO DAILY 11/24/21 11/24/21 [Norethin-Ee 1.5-0.03 mg(21) Tb] Previous Rx's Medication Instructions Recorded Azithromycin [Z-Jose Angel 250mg Tab*] 250 mg PO UD DOSE PK #6 tab 04/17/22 Brompheniramine/Pseudoephed/Dm 5 ml PO Q6HP PRN #240 ml 04/17/22 [Bromfed Dm Cough Syrup] methylPREDNISolone [Medrol] 4 mg PO DIRECTED 6 Days #21 04/17/22 packet Allergies Allergy/AdvReac Type Severity Reaction Status Date / Time Penicillins Allergy Mild Verified 04/17/22 10:54 hydrocodone [From LORTAB] Allergy Unknown Verified 04/17/22 10:54 latex [LATEX] Allergy Unknown Verified 04/17/22 10:54 - Worker's Comp Is this a Worker's Comp case?: No [facility] History - Hepatitis A Screen Attestation statement:: This patient has been screened for Hepatitis A risk factors. I have reviewed the patient's past medical history: Yes Medical History: Reports:: Hepatitis Denies:: Cancer, Diabetes Mellitus Type 1, Diabetes Mellitus Type 2, Internal Pacemaker, Lung Disease, MRSA, Seizures
[2022-04-17 11:24] VITALS: BP 116/86; PULSE 100; RESP 16; TEMP 36.8
== END 2022-04-17 11:34 | disposition home or self-care (01) ==
PROVIDERS: Emergency Provider Nurse Practitioner Family; PCP Internal Medicine Adolescent Medicine
DX: J02.9 Acute pharyngitis, unspecified (principal); H92.09 Otalgia, unspecified ear
CPT/HCPCS: 99212; G0463

== ENCOUNTER 2022-05-03 18:03 | Emergency (ER) | payer OTHER, SELFPAY ==
[2022-05-03 18:43] VITALS: BP 130/79; PULSE 87; RESP 18; TEMP 36.8; O2SAT 98; BMI 32.5
[2022-05-03 19:00] VITALS: BP 130/79; PULSE 87; RESP 18; TEMP 36.8; O2SAT 98; BMI 32.4
--- NOTE | 2022-05-03 19:14 | HMH.EDUTC ---
[facility] [place] Clinical Impression: Nausea Disposition: Home, Self-Care Condition on Discharge: Good Instructions: DI for Fever (Symptom) -- Adult, Ondansetron, Cefdinir Additional Instructions: Drink extra fluids with and between meals. If you have difficulty drinking, try very small amounts of water or suck on ice chips. ? Avoid fruit juices, as these do not replace minerals and can actually increase diarrhea. ? Children and adults can use sports drinks to replenish electrolytes. Younger children and infants should use products formulated for children, like oral rehydration solutions. ? Eat food in small amounts and let your stomach recover. ? Get lots of rest. You may feel tired or weak. ? No greasy or fried foods for the next 24-48 hours BRAT diet Bananas Rice Apples and [place] Ferm[place] ? Make sure to drink plenty of liquids ? Return if needed ? Straight to ER if any life threatening symptoms ? Zofran as prescribed Take your antibiotics to help treat and prevent further infection as it was prescribed by your Family Doctor ? Follow up with family doctor in the next 48-72 hours if no improvement or any worsening of symptoms Return and straight to ER if any worsening of symptoms as discussed in the CTC Rest and plenty of fluids Again Straight to ER if any worsening of symptoms or any life threatening symptoms Prescriptions: Ondansetron [Zofran 4mg ODT] 4 mg PO BIDP PRN #6 tab PRN Reason: Nausea Transmission Status: Received by [id number] Referrals: Dexter Garduno MD [Primary Care Provider] - As needed Time of Disposition: 19:50 Medical Decision Making - Calin Inquiry Pt receiving controlled substance: No Calin was queried for this patient: No Vital Signs: 05/03/22 18:43 05/03/22 19:00 05/03/22 19:53 Temperature 98.2 F 98.2 F 98.2 F Temperature Source Oral Oral Pulse Rate 87 Pulse Rate [Brachial] 87 87 Respiratory Rate 18 18 18 Blood Pressure 130/79 Blood Pressure [Right Arm] 130/79 130/79 Blood Pressure Mean [Right Arm] 96 96 Blood Pressure Source [Right Arm] Automatic Cuff Automatic Cuff Blood Pressure Position [Right Arm] Sitting Sitting 02 Sat by Pulse Oximetry 98 98 Oxygen Delivery Method Room Air Room Air - Lab Data Lab Results 05/03/22 19:13: POC Glucose 115 H Orders (Tests/Meds): ED MEDICATIONS Discontinued Medications Generic Name Dose Route Start Last Admin Trade Name Sherif PRN Reason Stop Dose Admin Ondansetron HCl 4 mg 05/03/22 19:47 05/03/22 19:53 Ondansetron 4mg Odt SL 05/03/22 19:48 4 mg ONCE ONE Administration Medical Decision Narrative: Patient states that she is being treated with antibiotics for a form of psoriasis on her left hand but she only took one of the antibiotics and it then she started feeling bad States that she hasnt took it anymore thinking that may have been what made her feel bad and her hand is looking better now also States that she has been having body aches, chills and nausea along with headache States that she was seen in the [facility] in [place] yesterday and they checked her and didnt find anything and told her to call her PCP this morning States that she was feeling better so she didnt call but tonight she started feeling bad again States that she has been having the chills cold sweats body aches and nausea and thought maybe her sugar was dropping or something Checked FSBS in [facility] 115 Discussed with patient about drawing labs and doing COVID test and patient declined states that she has kids at home and didnt want to stay Discussed with patient about transfer back to the ED for full work up and testing and patient declined that also states that she didnt want to wait she was wanting her FSBS checked and she will follow up with her PCP Patient educated that she needed to take the antibiotics as prescribed by her PCP as prescribed and she agreed Again discussed with patient about lab work and further testing and she declined Patien
[2022-05-03 19:44] LABS: POC Glucose,Bedside 115 (70-110)
[2022-05-03 19:53] VITALS: BP 130/79; PULSE 87; RESP 18; TEMP 36.8; O2SAT 98
== END 2022-05-03 19:55 | disposition home or self-care (01) ==
PROVIDERS: Emergency Provider Nurse Practitioner; PCP Internal Medicine Adolescent Medicine
DX: R11.0 Nausea (principal)
CPT/HCPCS: 82962; 99212; G0463

== ENCOUNTER 2023-01-24 09:10 | Emergency (ER) | payer OTHER, SELFPAY ==
[2023-01-24 09:45] VITALS: BP 141/83; PULSE 86; RESP 18; TEMP 36.8; O2SAT 98; BMI 31.2
--- NOTE | 2023-01-24 10:11 | EXP.UTC ---
Discharge Plan Disposition Patient Disposition: Home, Self-Care Condition: Good Prescriptions Prescriptions: New fluticasone propionate [Flonase Allergy Relief] 50 mcg/actuation spray,suspension 1 - 2 spray intranasal DAILY Qty: 16 0RF Rx Instructions: administer into each nostril daily No Action norgestimate-ethinyl estradiol [Estarylla] 0.25-35 mg-mcg tablet 1 tab PO DAILY methadone 40 mg Tablet,Soluble 40 mg PO DAILY Referrals Follow up/Referrals: Dexter Garduno MD [Primary Care Provider] - See instructions Activity Restrictions/Add. Instructions Additional Instructions/Restrictions: Use flonase as prescribed Follow up with your Family Doctor if needed Return if needed Straight to ER if any life threatening symptoms Clinical Impressions Clinical Impression: Eustachian tube dysfunction Instructions Patient Instructions: DI for Eustachian Tube Dysfunction-Adult Discharge ED Provider: Laura Zaldivar [facility] [place] General Stated complaint: RT ear pain Mode of Arrival: Ambulatory Source of Information: Patient Limitations: No Limitations Time Seen by Provider: 01/24/23 10:11 Description of Symptoms (Recalled from Triage Doc. by RN): PATIENT C/O SOMETHING IN RIGHT EAR X 2 WEEKS HEENT Symptoms (Recalled from RN notes): Yes Resp Symptoms (Recalled from RN notes): No Skin Symptoms (Recalled from RN notes): No MS Symptoms (Recalled from RN notes): No Functional Status (Recalled from RN notes): WNL History of Present Illness Provider Complaint: Patient states that she has been having pain/pressure on and off in her right ear for about 2 weeks States that a couple days ago she felt like she felt something crawling in there but hasnt felt it today worried something may be in her ear causing her ear to hurt Related Data Home Medications Medication Instructions Recorded Confirmed methadone 40 mg soluble tablet 40 mg PO DAILY Recovering 01/24/23 01/24/23 norgestimate 0.25 mg-ethinyl 1 tab PO DAILY control 01/24/23 01/24/23 estradiol 35 mcg tablet (Estarylla) Previous Rx's Medication Instructions Recorded fluticasone propionate 50 1 - 2 spray intranasal DAILY #16 01/24/23 mcg/actuation nasal grams spray,suspension (Flonase Allergy Relief) Allergies Allergy/AdvReac Type Severity Reaction Status Date / Time Penicillins Allergy Mild Verified 04/17/22 10:54 hydrocodone [From LORTAB] Allergy Unknown Verified 04/17/22 10:54 latex [LATEX] Allergy Unknown Verified 04/17/22 10:54 Worker's Comp Is this a Worker's Comp case?: No [facility] Disclaimer: The information contained in this section may have been updated after the patient was seen, as this information can be updated by other users. Social History Smoking Status: Current every day smoker tobacco type: cigarettes packs per day: 1 second hand exposure: Yes alcohol intake: never substance use type: heroin current occupational status: unemployed Travel in the last 8 weeks: None household members: family housing: house current occupational exposures/hazards: No caffeine: Yes ROS Obtained: Yes All systems reviewed & no additional complaints except as documented and Yes Systems reviewed as appropriate & no additional complaints except as documented Constitutional Constitutional: Reports system reviewed and no additional complaints, except as documented and Reports as per HPI ENT Ears, Nose, Mouth, and Throat: Reports system reviewed and no additional complaints, except as documented, Reports as per HPI and Reports otalgia Cardiovascular Cardiovascular: Reports system reviewed and no additional complaints, except as documented and Reports as per HPI Respiratory Respiratory: Reports system reviewed and no additional complaints, except as documented and Reports as per HPI Gastrointestinal Gastrointestingal: Reports system reviewed and no additional complaints, except as documented and as per
[2023-01-24 10:24] VITALS: BP 141/83; PULSE 86; RESP 18; TEMP 36.8; O2SAT 98
== END 2023-01-24 10:28 | disposition home or self-care (01) ==
PROVIDERS: Emergency Provider Nurse Practitioner; PCP Internal Medicine Adolescent Medicine
DX: H69.91 Unspecified Eustachian tube disorder, right ear (principal); F17.210 Nicotine dependence, cigarettes, uncomplicated
CPT/HCPCS: 99212; 99214; G0463

== ENCOUNTER 2025-01-17 13:12 | Outpatient (CLI) | payer OTHER, SELFPAY ==
[2025-01-17 13:49] LABS: Hemoglobin A1C 5.2 % (4.0-6.0)
[2025-01-17 14:49] LABS: Alanine Aminotransferase 54 U/L (12-78); Albumin Level 3.6 g/dl (3.5-5.0); Albumin/Globulin Ratio 1.1 (1.1-1.8); Alkaline Phosphatase 92 U/L (38-126); Aspartate Amino Transferase 44 U/L (14-36); Bilirubin,Total 0.5 mg/dl (0.2-1.3); Blood Urea Nitrogen 7 mg/dl (7-17); Calcium 8.9 mg/dl (8.4-10.2); Carbon Dioxide 28 mmol/L (22.0-30.0); Chloride 105 mmol/L (98-107); Chol/HDL Ratio 2.8 (1-3.5); Cholesterol 118 mg/dl (140-200); Estimated Glomerular Filt Rate 83 ml/min (>60); GFR (African American) 101 ML/MIN (>60); Globulin 3.3 g/dL (1.3-3.2); Glucose 99 mg/dl (74-100); HDL Cholesterol 42 mg/dl (40-60); Sodium 142 mmol/L (136-145); Total Protein,Serum 6.9 g/dl (6.3-8.2); Triglycerides 105 mg/dl (30-150); VLDL Cholesterol 21 mg/dL (0-40)
[2025-01-17 15:00] LABS: Direct LDL Cholesterol 67.73 mg/dL (100-129)
[2025-01-17 15:06] LABS: 25-OH Vitamin D, Total 37.3 ng/mL (30-100)
[2025-01-17 15:20] LABS: Thyroid Stimulating Hormone 1.78 uIU/mL (0.465-4.68)
[2025-01-17 15:39] LABS: Vitamin B12 394 pg/mL (239-931)
[2025-01-17 15:56] LABS: Basophils % 0.4 % (0.1-2.0); Eosinophils # 0.2 K/mm3 (0.0-0.4); Eosinophils % 2.7 % (0.1-12.0); Hematocrit 41.1 % (37.0-47.0); Hemoglobin 13.7 g/dL (12.2-16.2); Lymphocytes # 3.8 K/mm3 (0.7-4.5); Lymphocytes % 46.8 % (10-50); Mean Corpuscular HGB Conc 33.3 g/dL (31.8-35.4); Mean Corpuscular Volume 87.1 fl (81-99); Mean Platelet Volume 10.6 fl (7.4-10.4); Monocytes # 0.4 K/mm3 (0.1-1.0); Monocytes % 4.6 % (1.7-9.3); Neutrophils # 3.7 K/mm3 (1.8-7.8); Neutrophils % 45.4 % (37.0-80.0); Platelet Count 372 K/mm3 (142-424); Red Blood Count 4.72 M/mm3 (4.20-5.40); Red Cell Distribution Width 12.5 % (11.5-17.5); White Blood Count 8.1 K/mm3 (4.8-10.8)
[2025-01-21 14:09] LABS: Hepatitis C Ab Qual. W/ RFX REACTIVE (Negative)
== END 2025-01-17 23:59 | disposition home or self-care (01) ==
LOC: LAB 13:12
PROVIDERS: PCP Internal Medicine Adolescent Medicine; Visit Provider Nurse Practitioner Family
DX: R74.8 Abnormal levels of other serum enzymes (principal); L30.9 Dermatitis, unspecified; Z00.00 Encounter for general adult medical examination without abnormal findings
CPT/HCPCS: 36415; 80053; 80061; 82306; 82607; 83036; 84443; 85025; 86803; 87522

== ENCOUNTER 2025-04-17 08:17 | Outpatient (CLI) | payer OTHER, SELFPAY ==
--- NOTE | 2025-04-17 08:19 | US_ITS ---
FINAL REPORT CLINICAL HISTORY: HEP C W/O COMA, CHRONIC COMPARISON: None FINDINGS: Sonographic images of the right upper quadrant were obtained. The pancreas is partially obscured. There is mild increased echogenicity in the liver consistent with fatty infiltration. Multiple gallstones are noted in the gallbladder. There is no evidence of biliary ductal dilatation.The common duct measures 6 mm. Limited images of the right kidney are unremarkable. IMPRESSION: Fatty infiltration of the liver. Multiple gallstones are present in the gallbladder without evidence of biliary ductal dilatation. Reviewed, Interpreted and Dictated by Juanito Lovell MD Transcribed by Leslie Glass Authenticated and [facility]
--- OUTSIDE RECORDS SUMMARY | 2025-04-17 08:19 | XMS_ITS | Clinical Summary ---
Author Organization [facility] Address [address] [facility] [place] [address] Phone Care Team Providers Care Supply Coordinator Name Role Phone Unavailable Primary Care Provider Unavailabl e Allergies Active Allergy Reactions Criticality Noted Date Comments Penicillins Hives 10/12/2019 Medications buprenorphine-na loxone (SUBOXONE) 8-2 mg SL Tablet, SublingualIndica tions:pt takes 8mg bid Place 4 Tabs under the tongue 2 times daily. Indications : pt takes 8mg bid Active vit-iron fum-folic ac 27 mg iron- 0.8 mg Oral Tablet Take 1 Tab by mouth daily. Active Surgical History Surgery Date Site/Laterality Comments SECTION 2017 SALPINGO-OOPHORECTOMY 10/17/2016 - 10/16/2017 Right right fallopian, right ovary Medical History Medical History Date Comments Salpingitis due to ectopic 2016 right falopian, right ovary Hepatitis C Social History Tobacco Use Types Packs/Day Years Used Date Smoking Tobacco: Every Day Cigarettes 0.5 11.5 Started: 2013 Smokeless Tobacco: Never Alcohol Use Standard Drinks/Week Comments Not Currently 0 (1 standard drink = 0.6 oz pur e alcohol) AUDIT-C Answer Date Recorded Frequency of Alcohol Consumption Never 10/12/2019 Average Number of Drinks Not on file 019 Frequency of Binge Drinking Not on file 09/17 Comments No Sex and Gender Information Value Date Recorded Sex Assigned at Not on file Legal Sex Female 2:32 AM EST Gender Identity Not on file Sexual Orientation Not on file Obstetrics History Para Term AB IAB SAB Ectopic Multiple Livin g Live Births 5 2 2 0 2 0 1 1 0 2 2 Date Outcome GA Total Labor Labor/2nd/3rd Weight Sex Type Anes PTL Madhavi A1 A5 Name Clin 009 Term M Vag-S pont Living Delivery Location:[facility] 013 Ectopic Delivery Location:[facility] 017 Term F CS-Un spec Living Delivery Location:[facility] 2018 SAB Delivery Location:[facility] Last Filed Vital Signs Vital Sign Reading Time Taken Comments Blood Pressure 108/68 10/12/2019 3:18 AM EST Pulse 85 10/12/2019 3:18 AM EST Temperature 36.8 C (98.2 F) 10/12/2019 3:18 AM EST Respiratory Rate 18 10/12/2019 3:18 AM EST Oxygen Saturation 98% 10/12/2019 2:41 AM EST Inhaled Oxygen Concentration - - Weight 57.6 kg (127 lb) 10/12/2019 3:17 AM EST Height 154.9 cm (5' 1 ) 10/12/2019 3:17 AM EST Body Mass Index 24 10/12/2019 3:17 AM EST Plan of Treatment Health Maintenance Due Date Last Done Comments Annual Wellness Exam 1995 DTaP/TDaP/Td (1 - Tdap) 2011 Hepatitis B Vaccine (1 of 3 - 19+ 3-dose series) 2011 Cervical Cancer Screening 2013 Pap Smear 2013 HPV/Pap Cotest 2022 COVID-19 Vaccine (1 - 2023-2 5 season) 2024 Influenza Vaccine (Season Ended) 2025 Meningococcal B Vaccine Aged Out No l onger eligible based on patient's age to complete this topic Pneumococcal Vaccine 0-49 Aged Out No longer eligible based on patient's age to complete this topic Insurance [facility] [facility] [address] [facility] [place] [address] [employer] [place] [facility] [place] [address]
--- OUTSIDE RECORDS SUMMARY | 2025-04-17 08:19 | XMS_ITS | Clinical Summary ---
Author Organization [facility] Address [address] [place] [address] Care Team Providers Care Sound Engineer Audio Control Name Role Phone Unavailable Primary Care Provider Unavailabl e Immunizations Immunization Administration Dates Next Due Influenza, injectable, quadrivalent, preservativ e free 08/24/2019 Tdap 06/17/2017 Social History Tobacco Use Types Packs/Day Years Used Date Smoking Tobacco: Every Day Alcohol Use Standard Drinks/Week Comments No 0 (1 standard drink = 0.6 oz pur e alcohol) Comments Unknown Sex and Gender Information Value Date Recorded Sex Assigned at Not on file Legal Sex Female 8:22 PM EDT Gender Identity Not on file Sexual Orientation Not on file Last Filed Vital Signs Vital Sign Reading Time Taken Comments Blood Pressure - - Pulse - - Temperature - - Respiratory Rate - - Oxygen Saturation - - Inhaled Oxygen Concentration - - Weight 79.6 kg (175 lb 7.8 oz) 06/17/2017 2:31 PM EDT Height 154.9 cm (5' 1 ) 06/17/2017 2:31 PM EDT Body Mass Index 33.16 06/17/2017 2:31 PM EDT Plan of Treatment Not on file Insurance AETNA [facility] MEDICAID
== END 2025-04-17 23:59 | disposition home or self-care (01) ==
LOC: RAD 08:17
PROVIDERS: PCP Internal Medicine Adolescent Medicine; Visit Provider Nurse Practitioner Family
DX: K76.0 Fatty (change of) liver, not elsewhere classified (principal); K80.20 Calculus of gallbladder without cholecystitis without obstruction; B18.2 Chronic viral hepatitis C
CPT/HCPCS: 76705

== ENCOUNTER 2025-05-28 10:01 | Outpatient (CLI) | payer OTHER, SELFPAY ==
--- OUTSIDE RECORDS SUMMARY | 2002-06-05 | XMS_ITS | Encounter Summary ---
Author Organization [facility] Address [address] [place] [id number] Care Team Providers Care Choir Teacher Name Role Phone Unavailable Primary Care Provider Unavailmiguel e Encounter Details Date Type Department Care Team (Late st Contact Info) Description 06/05/2002 Hospital Encounter [facility] Division of Gastroenterology, Hepatology and Nutrition [address] [place] [phone] Social History Tobacco Use Types Packs/Day Years Used Date Smoking Tobacco: Never Assessed Comments Unknown Sex and Gender Information Value Date Recorded Sex Assigned at Not on file Legal Sex Female 5:13 AM EST Gender Identity Not on file Sexual Orientation Not on file documented as of this encounter Plan of Treatment Not on file documented as of this encounter Visit Diagnoses Not on filedocumented in this encounter
--- OUTSIDE RECORDS SUMMARY | 2002-07-31 | XMS_ITS | Encounter Summary ---
Author Organization [facility] Address [address] [place] [id number] Care Team Providers Care Meeting Specialist Name Role Phone Unavailable Primary Care Provider Unavailmiguel e Encounter Details Date Type Department Care Team (Late st Contact Info) Description 07/31/2002 Hospital Encounter [facility] Division of Gastroenterology, Hepatology and Nutrition [address] [place] [phone] Social History Tobacco Use Types Packs/Day [...]
--- OUTSIDE RECORDS SUMMARY | 2003-01-15 01:00 | XMS_ITS | Encounter Summary ---
Author Organization [facility] Address [address] [place] [id number] Care Team Providers Care Perfect Binder Setter Name Role Phone Unavailable Primary Care Provider Unavailmiguel e Encounter Details Date Type Department Care Team (Late st Contact Info) Description 01/15/2003 Hospital Encounter [facility] Division of Gastroenterology, Hepatology and Nutrition [address] [place] [phone] Social History Tobacco Use Types Packs/Day [...]
--- OUTSIDE RECORDS SUMMARY | 2003-03-19 | XMS_ITS | Encounter Summary ---
Author Organization [facility] Address [address] [place] [phone] Care Team Providers Care Metal Riveting Machine Operator Name Role Phone Unavailable Primary Care Provider Unavailmiguel e Encounter Details Date Type Department Care Team (Late st Contact Info) Description 03/19/2003 Hospital Encounter [facility] Division of Gastroenterology, Hepatology and Nutrition [address] [place] [phone] Social History Tobacco Use Types Packs/Day [...]
--- OUTSIDE RECORDS SUMMARY | 2025-05-28 10:16 | XMS_ITS | Clinical Summary ---
Author Organization [facility] Address [facility] [place] [id number] Phone Care Team Providers Care Score Caller Name Role Phone Unavailable Primary Care Provider [...] Date Smoking Tobacco: Every Day Cigarettes 0.5 11.6 Started: 2013 Smokeless Tobacco: Never Alcohol Use [...] M Vag-S pont Living Delivery Location:[facility] 013 Ectopic Delivery Location:[facility] 017 Term F CS-Un spec Living Delivery Location:[facility] 2018 SAB Delivery Location:[facility] Last Filed Vital Signs Vital Sign Reading [...] - 2023-2 5 season) 2024 Influenza Vaccine (#1) 2025 Meningococcal B Vaccine Aged Out No l onger eligible based on patient's age to complete this topic Pneumococcal Vaccine 0-49 Aged Out No longer eligible based on patient's age to complete this topic Insurance [facility]ETNA [facility] [address] [facility] [place] [address] [employer] AA [facility] [place] [address]
--- OUTSIDE RECORDS SUMMARY | 2025-05-28 10:16 | XMS_ITS | Clinical Summary ---
Author Organization [facility] Address [address] [place] [address] Care Team Providers Care Sfdc Developer Name Role Phone Unavailable Primary Care Provider Unavailabl e Source Comments [facility] is fully rolled out with thefollowing exceptions:General Clinical Research [facility] Social History Tobacco Use Types Packs/Day Years Used Date Smoking Tobacco: Never Assessed Comments Unknown Sex and Gender Information Value Date Recorded Sex Assigned at Not on file Legal Sex Female 5:13 AM EST Gender Identity Not on file Sexual Orientation Not on file Plan of Treatment Health Maintenance Due Date Last Done Comments MMR IMMUNIZATION (1 of 1 - S tandard series) 1993 DTAP/Tdap/Td IMMUNIZATION (1 - Tdap) 1999 VARICELLA IMMUNIZATION (1 of 2 - 13+ 2-dose series) 2005 HEPATITIS B IMMUNIZATION (1 of 3 - 19+ 3-dose series) 2011 HPV IMMUNIZATION (1 - 3-dose SCDM series) 2019 COVID-19 Vaccine (2023-2 5 season) 2024 AMB SEASONAL FLU VACCINE (#1) 06/17/2025 HIB IMMUNIZATION Aged Out No longer e ligible based on patient's age to complete this topic IPV IMMUNIZATION Aged Out No longer e ligible based on patient's age to complete this topic MCV4 IMMUNIZATION Aged Out No longer eligible based on patient's age to complete this topic MENINGOCOCCAL B VACCINE Aged Out No l onger eligible based on patient's age to complete this topic PNEUMOCOCCAL IMMUNIZATION Aged Out No longer eligible based on patient's age to complete this topic Respiratory Syncytial Virus (RSV) <20mo Aged Out No longer eligible b ased on patient's age to complete this topic
--- OUTSIDE RECORDS SUMMARY | 2025-05-28 10:16 | XMS_ITS | Clinical Summary ---
Author Organization [facility] Address [address] [place] [address] Care Team Providers Care Silver Lap Machine Tender Name Role Phone Unavailable Primary Care Provider [...] of Treatment Not on file Insurance AETNA [facility] MEDICAID
[2025-05-28 10:54] LABS: Hematocrit 41.1 % (37.0-47.0); Hemoglobin 13.6 g/dL (12.2-16.2); Immature Granulocytes % 0.1 %; Mean Corpuscular HGB Conc 33.1 g/dL (31.8-35.4); Mean Corpuscular Hemoglobin 29.3 pg (27.0-31.2); Mean Corpuscular Volume 88.6 fl (81-99); Nucleated Red Blood Cells % 0 %; Platelet Count 368 K/mm3 (142-424); Red Blood Count 4.64 M/mm3 (4.20-5.40); Red Cell Distribution Width-SD 37.6 fL; White Blood Count 7.6 K/mm3 (4.8-10.8)
[2025-05-28 11:01] LABS: INR 0.88 (0.9-1.1); Prothrombin Time 9.9 seconds (10.1-12.5)
[2025-05-28 11:06] LABS: Alanine Aminotransferase 50 U/L (12-78); Albumin Level 3.7 g/dl (3.5-5.0); Albumin/Globulin Ratio 1.2 (1.1-1.8); Alkaline Phosphatase 90 U/L (38-126); Anion Gap 10.3 mEq/L (5-15); Aspartate Amino Transferase 45 U/L (14-36); Bilirubin,Total 0.3 mg/dl (0.2-1.3); Blood Urea Nitrogen 8 mg/dl (7-17); Calcium 9.3 mg/dl (8.4-10.2); Carbon Dioxide 29 mmol/L (22.0-30.0); Chloride 105 mmol/L (98-107); Creatinine,Serum 0.60 mg/dl (0.52-1.04); Estimated Glomerular Filt Rate 115 ml/min (>60); GFR (African American) 139 ML/MIN (>60); Globulin 3.1 g/dL (1.3-3.2); Glucose 90 mg/dl (74-100); Potassium 4.3 mmoL/L (3.5-5.1); Sodium 140 mmol/L (136-145); Total Protein,Serum 6.8 g/dl (6.3-8.2)
[2025-05-28 11:23] LABS: 25-OH Vitamin D, Total 36.8 ng/mL (30-100)
[2025-05-28 11:54] LABS: Hepatitis C Ab Qual. W/ RFX REACTIVE (Negative)
[2025-05-29 07:22] LABS: Hep A Ab, Total Negative (Negative); Hep B Surface Ab, Qual Non Reactive (.); Hepatitis B Core Antibody, IgM Negative (Negative); Hepatitis B Surface Antigen Negative (Negative)
[2025-05-31 00:21] LABS: ALT (SGPT) P5P 50 IU/L (0-40); AST (SGOT) P5P 39 IU/L (0-40); Alpha 2-Macroglobulins, Qn 221 mg/dL (110-276); Bilirubin, Total 0.3 mg/dL (0.0-1.2); Cholesterol, Total 129 mg/dL (100-199); GGT 28 IU/L (0-60); Glucose 90 mg/dL (70-99); Triglycerides 118 mg/dL (0-149)
== END 2025-05-28 23:59 | disposition home or self-care (01) ==
LOC: LAB 10:02
PROVIDERS: PCP Nurse Practitioner Family; Visit Provider Nurse Practitioner Family
DX: B18.2 Chronic viral hepatitis C (principal)
CPT/HCPCS: 36415; 80053; 81596; 82247; 82306; 82465; 82947; 82977; 83521; 84450; 84460; 84478; 85025; 85610; 86706; 86803; 87389; 87522